=== PATIENT | female | born 1975 | race Caucasian/White ===

== ENCOUNTER → 2019-01-21 | Outpatient (CLI) | payer OTHER ==
--- NOTE | 2019-01-22 03:30 | REP ---
Clinical: Pain. Technique: AP, lateral, bilateral oblique views of the right ankle. Findings: Moderate generalized swelling. No acute fracture dislocation. Fixation screw through the posterior calcaneus noted. Mild age-related degenerative changes. Impression: Swelling and mild age-related degenerative changes. Electronically Signed by Allan Townsend MD 01/22/2019 03:21 A
--- NOTE | 2019-01-22 03:34 | REP ---
Clinical: Pain Technique: AP, lateral, bilateral oblique views right foot . Findings: Prior surgical procedure involving the first toe proximal phalanx and calcaneus. Mild degenerative changes at the first tarsometatarsal and metatarsophalangeal joint includes increase sclerosis and minimal joint space narrowing. Mild degenerative changes at the first interphalangeal joint also suggested. Remainder examination appears relatively normal for age. There is no evidence for acute fracture or dislocation. Surrounding soft tissues are unremarkable. No subcutaneous emphysema or radiodense foreign body. Impression: Evidence for prior surgery involving calcaneus and first toe. Minimal age-related degenerative changes primarily involving the first toe. No acute fracture or dislocation. Electronically Signed by Allan Townsend MD 01/22/2019 03:25 A
== END ==
LOC: M WUC 11:00
PROVIDERS: ATTEND Physician Assistant
DX: M25.571 Pain in right ankle and joints of right foot (principal); Z96.60 Presence of unspecified orthopedic joint implant

== ENCOUNTER → 2019-05-14 | Outpatient (REF) | payer OTHER ==
[2019-05-14 18:40] LABS: BASO # 0.1 10^3/uL (0.0-0.2); BASO % 0.5 % (0.0-1.0); EOS # 0.1 10^3/uL (0.0-0.5); EOS % 1.1 % (0.0-3.0); LYMPH # 3.6 10^3/uL (1.5-5.0); LYMPH % 35.4 % (24.0-44.0); MEAN CORPUSCULAR HEMOGLOBIN 33.9 pg (27.0-33.0); MEAN CORPUSCULAR HGB CONC 34.1 g/dl (32.0-36.5); MEAN CORPUSCULAR VOLUME 99.5 fl (80.0-96.0); MONO # 0.6 10^3/uL (0.0-0.8); NEUTROPHILS # 5.8 10^3/uL (1.5-8.5); NEUTROPHILS % 56.7 % (36.0-66.0); PLATELET COUNT, AUTOMATED 303 10^3/uL (150-450); RED BLOOD COUNT 4.42 10^6/uL (4.00-5.40); WHITE BLOOD COUNT 10.2 10^3/uL (4.0-10.0)
[2019-05-14 19:21] LABS: ALBUMIN 4.2 GM/DL (3.2-5.2); ALT/SGPT 35 U/L (12-78); BILIRUBIN,TOTAL 0.2 MG/DL (0.2-1.0); BLOOD UREA NITROGEN 13 MG/DL (7-18); C REACTIVE PROTEIN QUANTITATIV < 0.30 MG/DL (0.00-0.30); CALCIUM LEVEL 8.9 MG/DL (8.5-10.1); CARBON DIOXIDE LEVEL 22 MEQ/L (21-32); CHLORIDE LEVEL 109 MEQ/L (98-107); COMPLEMENT C3 114 MG/DL (90-180); COMPLEMENT C4 22 MG/DL (10-40); CREATININE FOR GFR 0.61 MG/DL (0.55-1.30); FERRITIN 60 NG/ML (8-252); GLOMERULAR FILTRATION RATE > 60.0 (>58); GLUCOSE, FASTING 72 MG/DL (70-100); IMMUNOGLOBULIN G 545 MG/DL (681-1648); IRON (FE) 102 UG/DL (50-170); PERCENT SATURATION 27.3 % (13.2-45.0); POTASSIUM SERUM 3.9 MEQ/L (3.5-5.1); RHEUMATOID FACTOR QUANT < 10.0 IU/ML (<15.0); SODIUM LEVEL 139 MEQ/L (136-145); TOTAL IRON BINDING CAPACITY 373 UG/DL (250-450); TOTAL PROTEIN 6.8 GM/DL (6.4-8.2)
[2019-05-14 19:30] LABS: ERYTHROCYTE SEDIMENTATION RATE 3 mm/hr (0-20)
[2019-05-15 11:00] LABS: ALBUMIN 4.56 GM/DL (3.29-5.55); ALPHA-1-GLOBULIN % 4.5 % (2.9-4.9); ALPHA-1-GLOBULINS 0.31 GM/DL (0.17-0.41); ALPHA-2-GLOBULINS % 10.3 % (7.1-11.8); BETA-1-GLOBULINS 0.42 GM/DL (0.28-0.60); BETA-1-GLOBULINS % 6.2 % (4.7-7.2); BETA-2-GLOBULINS 0.24 GM/DL (0.19-0.55); BETA-2-GLOBULINS % 3.5 % (3.2-6.5); GAMMA GLOBULIN % 8.5 % (11.1-18.8); GAMMA GLOBULINS 0.58 GM/DL (0.65-1.58)
[2019-05-19 14:06] LABS: ANA (HEP2) Negative (.); ANTI DS-DNA AB Negative (Negative); BETA-2 GLYCOPROTEIN I ABY IGA <9 (0-25); BETA-2 GLYCOPROTEIN I ABY IGG <9 (0-20); BETA-2 GLYCOPROTEIN I ABY IGM <9 (0-32); CARDIOLIPIN IGA ANTIBODY <9 APL U/mL (0-11); CARDIOLIPIN IGG ANTIBODY <9 GPL U/mL (0-14); CARDIOLIPIN IGM ANTIBODY <9 MPL U/mL (0-12); CYCLIC CITRULLINATED PEPTIDE 8 units (0-19); RNP ANTIBODY < 0.2 AI (0.0-0.9); SMITHS ANTIBODY < 0.2 AI (0.0-0.9); SSA SJOGRENS A <0.2 AI (0.0-0.9); SSB SJOGRENS B <0.2 AI (0.0-0.9)
[2019-05-20 10:31] LABS: DRVV SCREEN 40.7 SEC
[2019-05-27 09:56] LABS: JAK2 MUTATIONS FOR PATH SENDOU See Pathology Report
== END ==
LOC: M SFHCRHEU 15:16
PROVIDERS: ATTEND Internal Medicine
DX: D75.1 Secondary polycythemia (principal); D84.9 Immunodeficiency, unspecified; R23.1 Pallor; M25.50 Pain in unspecified joint
CPT/HCPCS: 36415; 80053; 82728; 82784; 83550; 84165; 85025; 85652; 85730; 86038; 86140; 86146; 86147; 86160; 86200; 86225; 86235; 86255; 86431; 88300; G0463

== ENCOUNTER 2019-08-16 15:35 | Emergency (ER) | payer OTHER ==
[~2019-08-16] VITALS: Ht 175.3 cm; Wt 110.2 kg
[2019-08-16] MEDS ORDERED: METR-265 (15:47)
[2019-08-16] MEDS ORDERED: LISI20TA19 (15:47)
[2019-08-16] MEDS ORDERED: TIZA4TAB4 (15:47)
[2019-08-16] MEDS ORDERED: VYVA40CA3 (15:47)
[2019-08-16] MEDS ORDERED: OMEP-218 (15:47)
[2019-08-16] MEDS ORDERED: TOPI50TA9 (15:48)
[2019-08-16] MEDS ORDERED: GABAPENTIN 300 MG CAP PO ONE (17:30)
[2019-08-16] MEDS ORDERED: LORazepam 2 MG/ML VIAL IV STA (17:51)
[2019-08-16 18:22] LABS: BASO % 0.4 % (0.0-1.0); EOS # 0.1 10^3/uL (0.0-0.5); EOS % 0.9 % (0.0-3.0); HEMATOCRIT 44.4 % (36.0-47.0); LYMPH # 3.7 10^3/uL (1.5-5.0); LYMPH % 33.4 % (24.0-44.0); MEAN CORPUSCULAR HEMOGLOBIN 34.1 pg (27.0-33.0); MEAN CORPUSCULAR VOLUME 94.7 fl (80.0-96.0); MONO # 0.6 10^3/uL (0.0-0.8); MONO % 5.2 % (0.0-5.0); NEUTROPHILS # 6.6 10^3/uL (1.5-8.5); NEUTROPHILS % 59.8 % (36.0-66.0); PLATELET COUNT, AUTOMATED 282 10^3/uL (150-450); RED BLOOD COUNT 4.69 10^6/uL (4.00-5.40)
[2019-08-16 18:42] LABS: C REACTIVE PROTEIN QUANTITATIV < 0.30 MG/DL (0.00-0.30)
--- NOTE | 2019-08-16 18:56 | REPVR ---
PROCEDURE INFORMATION: Exam: MR Lumbar Spine Without Contrast. Exam date and time: 08/16/2019 5:25 PM Age: 43 years old Clinical indication: Low back pain; Patient HX: Chronic pain, worsening; Additional info: Urinary retention, R foot drop, HX l5-s1 foraminal narrowing TECHNIQUE: Imaging protocol: Multiplanar magnetic resonance images of the lumbar spine without intravenous contrast. COMPARISON: No relevant prior studies available. FINDINGS: Transitional anatomy at the lumbosacral junction. For the purposes of this report, S1 is considered partially lumbarized. Grade 1 anterolisthesis of L4 on L5 mild retrolisthesis of L5 on S1. Vertebral body heights are preserved. Disc desiccation and mild disc space narrowing at L4-L5 and L5-S1. Mild degenerative endplate signal. No evidence of discitis/osteomyelitis. Conus medullaris terminates at L1-L2. No epidural fluid collection. Reactive edema involving the bilateral L4-L5 facet joints. L1-L2: Mild bilateral facet joint arthropathy without central or foraminal stenosis. L2-L3: Mild bilateral facet joint arthropathy without central or foraminal stenosis. L3-L4: Minimal disc bulge. There is mild bilateral facet joint arthropathy with small bilateral facet joint effusions. No significant central canal stenosis. Mild left foraminal stenosis. L4-L5: Rzeh-it-nkydufjb disc bulge with moderate bilateral facet joint arthropathy and posterior laxity of ligamentum flavum. Mild to moderate central canal stenosis and usge-kx-gukgcuzg bilateral foraminal stenosis. L5-S1: Cuvc-uo-zwqsytpq disc bulge with bilateral facet joint arthropathy. No significant central canal stenosis. There is moderate to severe bilateral foraminal stenosis. IMPRESSION: 1. Reactive edema involving the bilateral L4-L5 facet joints. Finding can be pain generating. 2. Degenerative findings as above including mild to moderate central canal stenosis at L4-L5. Electronically signed by: Stanislav Perez On 08/16/2019 18:55:43 PM
[2019-08-16 19:50] LABS: BLOOD UREA NITROGEN 9 MG/DL (7-18); CALCIUM LEVEL 8.9 MG/DL (8.5-10.1); CARBON DIOXIDE LEVEL 22 MEQ/L (21-32); CHLORIDE LEVEL 107 MEQ/L (98-107); CREATININE FOR GFR 0.63 MG/DL (0.55-1.30); GLOMERULAR FILTRATION RATE > 60.0 (>58); GLUCOSE, FASTING 88 MG/DL (70-100); POTASSIUM SERUM 3.4 MEQ/L (3.5-5.1); SODIUM LEVEL 136 MEQ/L (136-145)
[2019-08-16] MEDS ORDERED: methylPREDNISolone INJ 125 MG/2 ML VIAL (J2930) IV ONE (20:00)
[2019-08-16] MEDS ORDERED: KETOROLAC 30 MG/ML 1ML VIAL IV ONE (20:00)
[2019-08-16] MEDS ORDERED: VALI5TAB PO (20:31)
[2019-08-16] MEDS ORDERED: PRED20TA PO (20:31)
[2019-08-16] MEDS ORDERED: NEUR300C PO (20:31)
[2019-08-16 20:39] VITALS: BP 135/77
[2019-08-16] MEDS ORDERED: diazePAM 5 MG TAB PO ONE (20:45)
[2019-08-16 21:14] LABS: ERYTHROCYTE SEDIMENTATION RATE 3 mm/hr (0-20)
--- NOTE | 2019-08-18 12:07 | ED PDOC ---
Post-Departure Follow-Up mri ls spine faxed to lissy [facility]elson for fu Selena Mckinnon MD Aug 18, 2019 12:07
== END 2019-08-16 20:58 | disposition home or self-care (01) ==
LOC: M ED 15:35
DX: M54.16 Radiculopathy, lumbar region (principal); R20.2 Paresthesia of skin; I10 Essential (primary) hypertension; K21.9 Gastro-esophageal reflux disease without esophagitis; Z79.899 Other long term (current) drug therapy
CPT/HCPCS: 72148; 80048; 81001; 84702; 85025; 85652; 86140; 96374; 96375; 99284; J1885; J2060; J2930

== ENCOUNTER → 2019-08-23 | Outpatient (CLI) | payer OTHER ==
[~2019-08-23] MED LIST: LISI20TA19; METR-265; NEUR300C PO; OMEP-218; PRED20TA PO; TIZA4TAB4; TOPI50TA9; VALI5TAB PO; VYVA40CA3
--- NOTE | 2019-08-23 15:10 | REP ---
Clinical: Cervicalgia Technique: AP, lateral, flexion/extension, bilateral oblique, and open-mouth views. Findings: Alignment and lordosis is maintained. There is no evidence for acute fracture / compression injury or subluxation. No significant degenerative changes are appreciated. Oblique views demonstrate patent neural foramen. Open mouth view demonstrates normal C1-C2 articulation and odontoid process. Impression: Normal essentially age-appropriate cervical spine series. Electronically Signed by Allan Townsend MD 08/23/2019 03:02 P
== END ==
LOC: M WUC 14:44
PROVIDERS: ATTEND Physician Assistant
DX: M54.2 Cervicalgia (principal)

== ENCOUNTER 2019-09-08 13:47 | Emergency (ER) | payer OTHER ==
[~2019-09-08] VITALS: Ht 175.3 cm; Wt 107.3 kg
[2019-09-08] MEDS ORDERED: DULO1CAP5 (14:18)
[2019-09-08] MEDS ORDERED: HYDR-3713 (14:18)
[2019-09-08 15:48] LABS: BASO # 0.1 10^3/uL (0.0-0.2); BASO % 0.5 % (0.0-1.0); EOS # 0.1 10^3/uL (0.0-0.5); EOS % 0.8 % (0.0-3.0); HEMATOCRIT 43.2 % (36.0-47.0); HEMOGLOBIN 15.5 g/dl (12.0-15.5); LYMPH # 2.9 10^3/uL (1.5-5.0); MEAN CORPUSCULAR HEMOGLOBIN 34.5 pg (27.0-33.0); MEAN CORPUSCULAR HGB CONC 35.9 g/dl (32.0-36.5); MEAN CORPUSCULAR VOLUME 96.2 fl (80.0-96.0); MONO # 0.6 10^3/uL (0.0-0.8); MONO % 6.1 % (0.0-5.0); NEUTROPHILS # 5.5 10^3/uL (1.5-8.5); NEUTROPHILS % 60.4 % (36.0-66.0); PLATELET COUNT, AUTOMATED 311 10^3/uL (150-450); RED BLOOD COUNT 4.49 10^6/uL (4.00-5.40); WHITE BLOOD COUNT 9.2 10^3/uL (4.0-10.0)
[2019-09-08 16:06] LABS: ERYTHROCYTE SEDIMENTATION RATE 6 mm/hr (0-20)
[2019-09-08 16:08] LABS: BLOOD UREA NITROGEN 15 MG/DL (7-18); C REACTIVE PROTEIN QUANTITATIV < 0.30 MG/DL (0.00-0.30); CALCIUM LEVEL 8.8 MG/DL (8.5-10.1); CARBON DIOXIDE LEVEL 22 MEQ/L (21-32); CHLORIDE LEVEL 109 MEQ/L (98-107); CPK CREATINE PHOSPHOKINASE 46 U/L (26-192); CREATININE FOR GFR 0.68 MG/DL (0.55-1.30); GLOMERULAR FILTRATION RATE > 60.0 (>58); GLUCOSE, FASTING 81 MG/DL (70-100); MAGNESIUM LEVEL 2.4 MG/DL (1.8-2.4); POTASSIUM SERUM 3.5 MEQ/L (3.5-5.1); SODIUM LEVEL 136 MEQ/L (136-145)
[2019-09-08 17:14] VITALS: BP 124/69
--- NOTE | 2019-09-09 01:35 | REP ---
TWO-VIEW CHEST: REASON FOR EXAM: Dyspnea. There are no priors for comparison. FINDINGS: The superior mediastinal structures are midline. The cardiac silhouette is unremarkable in size, shape, and position. The diaphragmatic surfaces of the lungs are regular, and the costophrenic angles are clear. The pulmonary cruz are clear. The imaged osseous structures are intact. IMPRESSION: There is no acute cardiopulmonary disease. Electronically Signed by Elvis Croft DO 09/09/2019 10:23 A
== END 2019-09-08 17:19 | disposition home or self-care (01) ==
LOC: M ED 13:47
DX: G62.9 Polyneuropathy, unspecified (principal); R06.09 Other forms of dyspnea; R53.1 Weakness; F17.210 Nicotine dependence, cigarettes, uncomplicated; I10 Essential (primary) hypertension; J45.909 Unspecified asthma, uncomplicated

== ENCOUNTER → 2019-09-15 | Outpatient (CLI) | payer OTHER ==
[~2019-09-15] MED LIST changes: +DULO1CAP5; +HYDR-3713; +PROHANCE 279.3MG/ML 15ML VIAL As Ordered ONE; +PROHANCE 279.3MG/ML 5ML VIAL As Ordered ONE
--- NOTE | 2019-09-16 02:45 | REPVR ---
PROCEDURE INFORMATION: Exam: MR Head Without and With Contrast Exam date and time: 09/15/2019 4:48 PM Age: 43 years old Clinical indication: Dizziness and walking, difficulty; Additional info: Radiculopathy, abnormality of gait/mobility TECHNIQUE: Imaging protocol: MR of the head without and with intravenous contrast. 3D rendering: MIP and/or 3D reconstructed images were created by the technologist. Contrast material: PROHANCE; Contrast volume: 20 ml; Contrast route: INTRAVENOUS (IV); COMPARISON: No relevant prior studies available. FINDINGS: Limitations: Motion artifact limits this study. Brain: There are several small foci of FLAIR hyperintensity within the cerebral white matter. There is no mass effect or restricted diffusion associated with these foci. This white matter disease is nonspecific as to etiology. Possible etiologies include chronic small vessel ischemic disease, foci of demyelination, post-traumatic change, and migraine headaches, as well as additional infectious, inflammatory and autoimmune etiologies. No restricted diffusion within the brain to suggest an acute infarct. No abnormally enhancing intracranial mass is identified. No cerebral edema. Mild bilateral dural thickening and enhancement seen anteriorly. Differential considerations include infection, metastatic disease, intracranial hypotension, and idiopathic pachymeningitis. Low-lying cerebellar tonsils. No magnetic susceptibility intracerebral blood products/hemosiderin visualized. Ventricles: Small choroid plexus cysts are identified. No ventriculomegaly. Bones/joints: Nonspecific heterogeneous signal intensity of the skull. Sinuses: Magnetic susceptibility artifact limits evaluation of the right maxillary sinus. Mastoid air cells: Mild effusions within right mastoid air cells. Minimal mucosal thickening of left mastoid air cells. Orbits: Artifact limits evaluation of the optic globes. Soft tissues: Unremarkable, as visualized. IMPRESSION: 1. No restricted diffusion within the brain to suggest an acute infarct. 2. There are several small foci of FLAIR hyperintensity within the cerebral white matter. This white matter disease is nonspecific as to etiology, as detailed above. 3. Mild bilateral dural thickening and enhancement seen anteriorly. Differential considerations include infection, metastatic disease, intracranial hypotension, and idiopathic pachymeningitis. Clinical correlation is recommended. 4. Additional findings described above. Electronically signed by: Darrin Matson On 09/16/2019 02:44:58 AM
--- NOTE | 2019-09-16 03:17 | REPVR ---
PROCEDURE INFORMATION: Exam: MR Cervical Spine Without and With Contrast Exam date and time: 09/15/2019 4:49 PM Age: 43 years old Clinical indication: Radiculopathy; Cervicothoracic region; Additional info: Radiculopathy, abnormality of gait/mobility TECHNIQUE: Imaging protocol: Multiplanar magnetic resonance images of the cervical spine without and with intravenous contrast. Contrast material: PROHANCE; Contrast volume: 20 ml; Contrast route: INTRAVENOUS (IV); COMPARISON: CR SPINE CERVICAL COMPL 08/23/2019 2:58 PM FINDINGS: Vertebrae: The cervical vertebral bodies are normal in height, without abnormal subluxation. The cervical lordosis is straightened. Spinal cord: No visualized cervical spinal cord edema. Artifact limits evaluation of the cervical spinal canal on the T2 weighted sequence. There is a mild decrease in the AP diameter of the cervical spinal cord at C6-C7, which is likely developmental or due to mild atrophy. There is no evidence of compression from disc pathology. No pathological enhancement. Spinal epidural space: No epidural fluid collection identified. Multilevel findings: Degenerative disc disease is noted at multiple cervical levels, with a decrease in the T2 signal intensity of the discs as well as disc bulge/osteophyte complexes. C2-C3: Minimal disc bulging, without significant narrowing of the thecal sac or neural foramina. C3-C4: Minimal disc bulging causing flattening of the ventral border of the thecal sac, without significant narrowing. No significant neural foraminal narrowing bilaterally. C4-C5: Minimal disc bulging, without significant narrowing of the thecal sac. Mild right and moderate left neural foraminal narrowing, with uncovertebral hypertrophy. C5-C6: Minimal disc bulging, without significant narrowing of the thecal sac. Mild bilateral neural foraminal narrowing, with uncovertebral hypertrophy. C6-C7: Minimal disc bulging, with mild narrowing of the thecal sac. Mild left neural foraminal narrowing. No significant narrowing of the right neural foramen. C7-T1: No significant narrowing of the thecal sac. Mild left neural foraminal narrowing. No significant narrowing of the right neural foramen. Vertebral arteries: A dominant left vertebral artery is identified. Soft tissues: Mild prevertebral swelling is identified, with enhancement. This is likely infectious, inflammatory, or post-traumatic. There is a hypointense focus of gas posterior to the cricoid cartilage on the left side. This measures 1.2 x 0.7 cm. A diverticulum is considered. IMPRESSION: 1. Mild prevertebral swelling is identified, with enhancement. This is likely infectious, inflammatory, or post-traumatic. Clinical correlation recommended. 2. There is a mild decrease in the AP diameter of the cervical spinal cord at C6-C7, which is likely developmental or due to mild atrophy. There is no evidence of compression from disc pathology. 3. Degenerative changes are noted at multiple cervical levels, as described above. 4. Mild narrowing of the thecal sac at C6-C7. 5. Neural foraminal narrowing visualized from C4-C5 through C7-T1. 6. The cervical lordosis is straightened. This can be associated with muscle spasms. 7. There is a hypointense focus of gas posterior to the cricoid cartilage on the left side. This measures 1.2 x 0.7 cm. A diverticulum is considered. An infectious etiology cannot be excluded. Electronically signed by: Darrin Matson On 09/16/2019 03:17:22 AM
== END ==
LOC: M RAD 14:51
PROVIDERS: ATTEND Physician Assistant
DX: M54.16 Radiculopathy, lumbar region (principal); M50.21 Other cervical disc displacement, high cervical region; M50.221 Other cervical disc displacement at C4-C5 level; M50.223 Other cervical disc displacement at C6-C7 level; M50.222 Other cervical disc displacement at C5-C6 level; M50.23 Other cervical disc displacement, cervicothoracic region; R42 Dizziness and giddiness; R26.2 Difficulty in walking, not elsewhere classified; R90.82 White matter disease, unspecified
CPT/HCPCS: 70553; 72156; A9576

== ENCOUNTER → 2019-10-02 | Outpatient (CLI) | payer OTHER ==
[~2019-10-02] MED LIST changes: +CETI10CA2 PO; +DILT120C78 PO; +LEVO500T3; +LEXA1TAB PO; -LISI20TA19; +LISI20TA35; +MOTR200T44 PO; +MUCI1TAB16 PO; +NORC1TAB5 PO; +PSEU120T3 PO; +TOPA50TA8 PO; -VYVA40CA3; +VYVA40CA3 PO
--- NOTE | 2019-10-02 15:22 | REPVR ---
PROCEDURE INFORMATION: Exam: MR Thoracic Spine Without and With Contrast Exam date and time: 10/02/2019 9:59 AM Age: 43 years old Clinical indication: Weakness; Additional info: Weakness, radiculopathy, abnormality of giat TECHNIQUE: Imaging protocol: Multiplanar magnetic resonance images of the thoracic spine without and with intravenous contrast. Contrast material: PROHANCE; Contrast volume: 20 ml; Contrast route: INTRAVENOUS (IV); COMPARISON: No relevant prior studies available. FINDINGS: Vertebrae: Anatomic alignment. No acute fracture seen. Epidural space: No evidence of epidural fluid collection. Spinal cord: Normal signal. No cord compression. No abnormal enhancement. Discs/Spinal canal/Neural foramina: Disc desiccation from T3-4 through T6-7. No significant disc height loss. Trace multilevel thoracic prevertebral spondylosis. At T5-6, 1-2 mm left paracentral disc protrusion does not contribute to central spinal canal stenosis. Soft tissues: Unremarkable. Marrow: Focal T5 and T7 vertebral body hemangiomas. IMPRESSION: Mild degenerative changes without stenoses. Electronically signed by: Haylie Calderon On 10/02/2019 15:22:35 PM
--- NOTE | 2019-10-02 15:37 | REPVR ---
PROCEDURE INFORMATION: Exam: MR Lumbar Spine Without and With Contrast. Exam date and time: 10/02/2019 9:59 AM Age: 43 years old Clinical indication: Weakness; Additional info: Weakness, radiculopathy, abnormality of gait TECHNIQUE: Imaging protocol: Multiplanar magnetic resonance images of the lumbar spine without and with intravenous contrast. Contrast material: PROHANCE; Contrast volume: 20 ml; Contrast route: INTRAVENOUS (IV); COMPARISON: 1. MRI-Spine, L.S. without con 08/16/2019 6:20 PM 2. MRI-T SPINE W/O FOLL WITH CON 10/02/2019 8:21:39 AM FINDINGS: Vertebrae: On this day, an MRI thoracic spine was done concurrently. This designates a transitional L5 vertebral body which is partially sacralized. In order to remain consistent with the prior MRI lumbar spine report, the transitional vertebral body segment is considered to be a lumbarized S1. L5-S1 is considered to be axial image 4 of series 701. Mild exaggeration of the lumbar lordosis. Slight grade 1 degenerative anterolisthesis of L4 on L5 and degenerative retrolisthesis of L5 on S1, as before. No acute fracture seen. Edema in the L4 and L5 pedicles as well as articular facets with facet joint effusions as well as periarticular soft tissue edema, most likely inflammatory related to advanced facet arthropathy (there is periarticular soft tissue enhancement). Spinal epidural space: No evidence of epidural fluid collection. Spinal cord: The conus medullaris ends normally. No abnormal enhancement of the cauda equina nerve roots. There is disc desiccation at L4-L5 and L5-S1. Mild disc height loss and spondylosis, in particular prevertebral spondylosis with fatty degenerative marrow signal change of the endplates at L5-S1. L1-L2: No significant interval change. Mild facet arthropathy. No stenoses. L2-L3: No significant interval change. Mild facet arthropathy. No stenoses. L3-L4: No significant interval change. Slight disc bulge as well as mild facet arthropathy. The central spinal canal remains patent. Mild left neural foraminal stenosis. No significant right neural foraminal narrowing. L4-L5: No significant interval change. Anterolisthesis with pseudobulging of the intervertebral disc. High-intensity zone in left foraminal disc margin without a focal disc protrusion or extrusion, as before. There is marked facet arthropathy and ligamentum flavum buckling. Central spinal canal stenosis is zbex-io-mlbtjkap. Ghot-cm-phvcjyan bilateral neural foraminal stenoses. L5-S1: No significant interval change. Retrolisthesis, as well as mild to moderate disc osteophyte complex and facet arthropathy. The central spinal canal remains patent. Moderate to severe bilateral neural foraminal stenoses, as before. Soft tissues: See "Vertebrae" finding. IMPRESSION: 1. Transitional anatomy of the lumbosacral junction is again demonstrated. In order to remain consistent with the prior report, the S1 vertebral segment is considered to be lumbarized. 2. No significant interval change. 3. Brnw-jq-lipyqcnq central spinal canal and neural foraminal stenoses at L4-L5, as before. 4. High-grade neural foraminal stenoses at L5-S1, as before. Electronically signed by: Haylie Calderon On 10/02/2019 15:36:55 PM
== END ==
LOC: M RAD 07:59
PROVIDERS: ATTEND Physician Assistant
DX: R26.89 Other abnormalities of gait and mobility (principal); M54.16 Radiculopathy, lumbar region; R53.1 Weakness
CPT/HCPCS: 72157; 72158; A9576

== ENCOUNTER 2019-11-25 20:16 | Emergency (ER) | payer OTHER ==
[~2019-11-25] VITALS: Ht 175.3 cm; Wt 111.5 kg
[~2019-11-25 20:16] MED LIST changes: -CETI10CA2 PO; -DILT120C78 PO; -LEVO500T3; -LEXA1TAB PO; -MOTR200T44 PO; -MUCI1TAB16 PO; -NORC1TAB5 PO; -PROHANCE 279.3MG/ML 15ML VIAL As Ordered ONE; -PROHANCE 279.3MG/ML 5ML VIAL As Ordered ONE; -PSEU120T3 PO; -TOPA50TA8 PO
[2019-11-25 22:29] LABS: BASO % 0.4 % (0.0-1.0); EOS # 0.1 10^3/uL (0.0-0.5); EOS % 1.4 % (0.0-3.0); HEMATOCRIT 41.6 % (36.0-47.0); HEMOGLOBIN 14.3 g/dl (12.0-15.5); LYMPH % 43.5 % (24.0-44.0); MEAN CORPUSCULAR HEMOGLOBIN 34.4 pg (27.0-33.0); MEAN CORPUSCULAR HGB CONC 34.4 g/dl (32.0-36.5); MONO # 0.5 10^3/uL (0.0-0.8); MONO % 5.5 % (0.0-5.0); NEUTROPHILS # 4.5 10^3/uL (1.5-8.5); NEUTROPHILS % 49.1 % (36.0-66.0); PLATELET COUNT, AUTOMATED 320 10^3/uL (150-450); RED BLOOD COUNT 4.16 10^6/uL (4.00-5.40); WHITE BLOOD COUNT 9.1 10^3/uL (4.0-10.0)
[2019-11-25 22:39] LABS: INR 1.02; PROTHROMBIN TIME 13.6 SECONDS (11.8-14.0)
[2019-11-25 22:40] LABS: PARTIAL THROMBOPLASTIN TIME 33.6 SECONDS (25.0-38.4)
[2019-11-25 22:55] LABS: ALBUMIN 3.6 GM/DL (3.2-5.2); ALT/SGPT 36 U/L (12-78); BILIRUBIN,DIRECT < 0.1 MG/DL (0.0-0.2); BILIRUBIN,TOTAL 0.2 MG/DL (0.2-1.0); C REACTIVE PROTEIN QUANTITATIV < 0.30 MG/DL (0.00-0.30); ERYTHROCYTE SEDIMENTATION RATE 13 mm/hr (0-20); TOTAL PROTEIN 6.3 GM/DL (6.4-8.2)
--- NOTE | 2019-11-25 23:45 | REPVR ---
PROCEDURE INFORMATION: Exam: US Duplex Left Upper Extremity Veins, Limited Exam date and time: 11/25/2019 11:34 PM Age: 43 years old Clinical indication: Swelling (edema) of limb; Upper extremity, left; Additional info: R/O dvt, sweling/lumps TECHNIQUE: Imaging protocol: Real-time Duplex ultrasound of the Left Upper Extremity with 2-D bee scale, color Doppler flow and spectral waveform analysis with image documentation. Limited exam focused on the left upper extremity veins. COMPARISON: No relevant prior studies available. FINDINGS: Left deep veins: Unremarkable. Axillary and brachial veins are patent throughout without thrombus. Normal Doppler waveforms. Normal compressibility and/or augmentation response. Visualized internal jugular and subclavian veins are patent. Brachial veins are small in caliber. Left superficial veins: Unremarkable. Visualized cephalic and basilic veins are patent without thrombus. Soft tissues: Subtle hyperechoic lesion in the medial aspect of the left upper arm in the subcutaneous tissue measuring 1.4 x 2.0 x 0.6 cm. IMPRESSION: 1. No evidence of deep vein thrombosis. 2. Subtle hyperechoic lesion in the medial aspect of the left upper arm in the subcutaneous tissue. Possible cellulitis or hematoma. Electronically signed by: Louis Perez On 11/25/2019 23:45:12 PM
[2019-11-26 00:18] VITALS: BP 118/73
[2019-12-17] MEDS ORDERED: PSEU120T3 PO (13:29)
[2019-12-17] MEDS ORDERED: TOPA50TA8 PO (13:29)
[2019-12-17] MEDS ORDERED: LEXA1TAB PO (13:29)
[2019-12-17] MEDS ORDERED: NORC1TAB5 PO (13:29)
[2019-12-17] MEDS ORDERED: MOTR200T44 PO (13:29)
[2019-12-17] MEDS ORDERED: CETI10CA2 PO (13:29)
[2019-12-17] MEDS ORDERED: MUCI1TAB16 PO (13:29)
[2019-12-30] MEDS ORDERED: LEVO500T3 (08:47)
[2020-01-20] MEDS ORDERED: DILT120C78 PO (13:47)
== END 2019-11-26 00:19 | disposition home or self-care (01) ==
LOC: M ED 20:16
DX: E87.6 Hypokalemia (principal); R22.31 Localized swelling, mass and lump, right upper limb; I10 Essential (primary) hypertension; K21.9 Gastro-esophageal reflux disease without esophagitis; M79.2 Neuralgia and neuritis, unspecified; Z79.899 Other long term (current) drug therapy; F17.210 Nicotine dependence, cigarettes, uncomplicated

== ENCOUNTER → 2020-04-21 | Outpatient (CLI) | payer OTHER ==
[~2020-04-21] MED LIST changes: +CETI10CA2 PO; +DILT120C78 PO; +LEVO500T3; +LEXA1TAB PO; +MOTR200T44 PO; +MUCI1TAB16 PO; +NORC1TAB5 PO; +PSEU120T3 PO; +TOPA50TA8 PO
--- NOTE | 2020-04-21 14:29 | REP ---
INDICATION: PAIN IN LEGS,EDEMA,UNSPECIFIED ABNORMALITIES OF B COMPARISON: None. TECHNIQUE: Real time malagon scale and color Doppler evaluation of the bilateral lower extremity arterial vasculature using linear high frequency transducer. FINDINGS: Malagon scale and color images demonstrate mild atheromatous plaquing without stenosis or occlusion. Doppler interrogation demonstrates primarily bilateral triphasic arterial wave patterns with monophasic wave patterns noted through the bilateral posterior tibial arteries of uncertain significance and without obvious proximal luminal abnormality. Right KATHARINE: 1.09 Left KATHARINE: 1.09 Peak systolic velocities (cm/sec) Common femoral artery: Right 170; Left 182 Profunda femoris: Right 164; Left 135 SFA (proximal): Right 176; Left 154 SFA (mid): Right 107; Left 110 SFA (distal): Right 146; Left 102 Popliteal artery: Right 100; Left 82 RENETTA (prox.): Right 82; Left 76 Tibioperoneal trunk: Right 63; Left 90 MANAGER RETAIL (prox.): Right 96; Left 90 MANAGER RETAIL (distal): Right 102; Left 85 RENETTA (distal): Right 35; Left 50 IMPRESSION: Mild bilateral atheromatous plaquing. No areas of stenosis/significant narrowing or occlusion appreciated. <Electronically signed by Allan Townsend > 04/21/20 [id number]
--- NOTE | 2020-04-21 14:35 | REP ---
INDICATION: BLE WITH REFLUX, VENOUS INSUFF COMPARISON: None. TECHNIQUE: Malagon scale and color Doppler evaluation using linear high frequency transducer with reflux evaluation. FINDINGS: Ultrasound examination of the right and left lower extremity deep venous structures from the common femoral vein to the popliteal vein demonstrates normal compressibility flow and wave patterns in response to respiration and augmentation. There is no evidence for deep venous thrombosis. Further directed evaluation in the areas of focal tenderness along the bilateral calves demonstrate what appears to be areas of muscular protrusion into the subcutaneous fat 3 small fascial defects. Findings may be related to old injuries and/or surgery. Correlation is required. Right lower extremity demonstrates minimal reflux through the common femoral vein on standing and no reflux through the superficial venous system. Left lower extremity demonstrates minimal reflux through the proximal saphenous vein on standing only. IMPRESSION: No evidence for deep venous thrombosis. No relatively significant reflux disease noted. Focal areas of tenderness demonstrate irregularities of the musculature as described above of uncertain clinical significance. Correlation with physical examination and history of prior trauma or surgery is recommended. No associated fluid collection or mass lesion identified. <Electronically signed by Allan Townsend > 04/21/20 [id number]
== END ==
LOC: M RAD 10:54
PROVIDERS: ATTEND Physician Assistant
DX: M79.606 Pain in leg, unspecified (principal); R60.9 Edema, unspecified

== ENCOUNTER → 2020-06-17 | Outpatient (CLI) | payer OTHER ==
--- NOTE | 2020-06-17 15:31 | REP ---
INDICATION: TARSAL TUNNEL SYNDROME RIGHT FOOT. COMPARISON: MRI right ankle 01/12/2020. TECHNIQUE: Multiple sequences obtained in the axial, coronal and sagittal planes. FINDINGS: Metallic hardware and related magnetic susceptibility artifact is seen in the posterior calcaneus once again. There is metallic fixation in the 1st proximal phalanx with similar artifact. There is magnetic susceptibility artifact in the medial soft tissues of the hindfoot adjacent to the talus, calcaneus and navicular bone. Visualized tendons of the ankle appear intact without significant tenosynovitis. The flexor and extensor tendons of the foot appear intact without significant tenosynovitis. Stable heterogeneous increased signal on T2 weighted images is seen within the talus, unchanged. There is mild ill-defined low signal on T1 and high signal on T2 in the distal 1st metatarsal likely related to prior surgery. In the region of the sinus tarsi there is vague ill-defined high signal on T2 weighted images with small cystic areas which have decreased in size compared to the prior study. No other abnormal bone marrow signal is seen. No joint effusion is seen in any portion of the right foot. No ganglion cyst is seen. IMPRESSION: Postsurgical changes as discussed in detail above. Stable findings in the talus as discussed above. Decreased cystic changes in the region of the sinus tarsi. <Electronically signed by Benji Malagon > 06/17/20 [id number]
== END ==
LOC: M PLARAD 13:51
PROVIDERS: ATTEND Physical Medicine & Rehabilitation
DX: G57.51 Tarsal tunnel syndrome, right lower limb (principal)

== ENCOUNTER → 2020-08-05 | Outpatient (CLI) | payer OTHER ==
--- NOTE | 2020-08-06 10:02 | REP ---
INDICATION: LUMBAR SPONDYLOSIS, R/O PLEXIS. COMPARISON: Comparison is made with prior lumbar spine MRI studies the most recent which is from 11/05/2020. TECHNIQUE: Axial, oblique coronal, and sagittal imaging planes utilized. T1 and T2 weighted sequences are included with without fat saturation. Images are acquired parallel and perpendicular to the sacrum.. FINDINGS: Transitional lumbosacral junction anatomy has been described previously. There is a disc at S1-S2. There is mild central canal stenosis and L4-5 and L5-S1 with bilateral foraminal narrowing at both of these levels. Cortical and medullary bone signal intensity are normal in the sacrum. The coccyx is unremarkable in position and appearance. Presacral soft tissues show no abnormality. Piriform is muscles are normal and symmetric. No mass or other impingement the lesion is seen in the distribution of the sciatic nerves on either side. No pelvic mass or adenopathy is observed. There is a small cyst visible in the right adnexa consistent with an ovarian cyst. There is also a small quantity of physiologic fluid in the cul-de-sac. The retro sacral soft tissues are unremarkable. No uterine abnormality is seen. IMPRESSION: Degenerative disc disease with central canal stenosis and foraminal narrowing bilaterally at L4-5 and L5-S1. Transitional eyes lumbosacral junction. No sacral, presacral, or pelvic lesion seen. No abnormality noted along the course of the sciatic nerves. <Electronically signed by Sonu Stephens > 08/06/20 [id number]
== END ==
LOC: M RAD 18:03
PROVIDERS: ATTEND Physical Medicine & Rehabilitation
DX: M47.896 Other spondylosis, lumbar region (principal); M51.26 Other intervertebral disc displacement, lumbar region

== ENCOUNTER → 2020-08-26 | Outpatient (CLI) | payer OTHER ==
--- NOTE | 2020-09-01 07:58 | REP ---
INDICATION: BENIGN LIPOMATOUS NEOPLASM ELBOW. COMPARISON: Ultrasound examination dated 12/11/2019 TECHNIQUE: Axial noncontrast images of the left elbow from the mid humeral shaft through the mid forearm with coronal and sagittal reformations. FINDINGS: Visualized osseous structures are intact and age-appropriate. Elbow joint space appears normal. No obvious effusion or significant osteoarthritic degenerative changes are appreciated. The surrounding musculature as well as vasculature appear normal. The surrounding superficial subcutaneous tissues are grossly unremarkable. No obvious mass lesion is identified and evaluating the prior ultrasound this presumed lipoma has vague borders thereby less likely discretely identified by CT. However, at the region of interest there is no suspicious abnormality of concern. IMPRESSION: Relatively normal noncontrast CT of the right elbow. No obvious abnormality by noncontrast CT evaluation. As detailed above. <Electronically signed by Allan Townsend > 09/01/20 [id number]
--- NOTE | 2020-09-01 08:00 | REP ---
INDICATION: BENIGN LIPOMATOUS NEOPLASM ELBOW. COMPARISON: Ultrasound dated 12/11/2019 TECHNIQUE: Axial noncontrast images through the right elbow from the mid humeral diaphysis through the mid forearm with coronal and sagittal reformations. FINDINGS: Visualized osseous structures are intact and age-appropriate. Elbow joint space appears normal. No obvious effusion or significant osteoarthritic degenerative changes are appreciated. The surrounding musculature as well as vasculature appear normal. The surrounding superficial subcutaneous tissues are grossly unremarkable. No obvious mass lesion is identified, and evaluating the prior ultrasound this presumed lipoma has vague borders thereby less likely discretely identified by CT. However, at the region of interest there is no suspicious abnormality of concern.. IMPRESSION: Relatively normal noncontrast CT of the right elbow. No obvious abnormality by noncontrast CT evaluation. As detailed above. <Electronically signed by Allan Townsend > 09/01/20 [id number]
== END ==
LOC: M RAD 16:12
PROVIDERS: ATTEND Physician Assistant
DX: D17.9 Benign lipomatous neoplasm, unspecified (principal)
CPT/HCPCS: 73200; G0463

== ENCOUNTER → 2020-11-16 | Outpatient (REF) | payer OTHER | LOC: M LAB REF 13:48 | PROVIDERS: ATTEND Physician Assistant | DX: L57.0 Actinic keratosis (principal) ==

== ENCOUNTER → 2021-09-01 | Outpatient (REF) | payer OTHER ==
[~2021-09-01] MED LIST changes: -LEVO500T3; +LEVO500T4; +OMEP-173; -OMEP-218; +TIZA10TA; -TIZA4TAB4
[2021-09-01 16:45] LABS: BASO # 0.1 10^3/uL (0.0-0.2); BASO % 0.4 % (0.0-1.0); EOS # 0.1 10^3/uL (0.0-0.5); EOS % 0.6 % (0.0-3.0); HEMATOCRIT 44.2 % (36.0-47.0); HEMOGLOBIN 14.7 g/dl (12.0-15.5); LYMPH # 2.9 10^3/uL (1.5-5.0); LYMPH % 14.3 % (24.0-44.0); MEAN CORPUSCULAR HEMOGLOBIN 33.4 pg (27.0-33.0); MEAN CORPUSCULAR HGB CONC 33.3 g/dl (32.0-36.5); MEAN CORPUSCULAR VOLUME 100.5 fl (80.0-96.0); MONO # 0.9 10^3/uL (0.0-0.8); MONO % 4.5 % (2.0-8.0); NEUTROPHILS # 15.9 10^3/uL (1.5-8.5); NEUTROPHILS % 79.5 % (36.0-66.0); PLATELET COUNT, AUTOMATED 288 10^3/uL (150-450); WHITE BLOOD COUNT 19.9 10^3/uL (4.0-10.0)
[2021-09-01 17:09] LABS: ALBUMIN 3.8 GM/DL (3.2-5.2); ALT/SGPT 24 U/L (12-78); BILIRUBIN,TOTAL 0.2 MG/DL (0.2-1.0); BLOOD UREA NITROGEN 17 MG/DL (7-18); C REACTIVE PROTEIN QUANTITATIV 0.67 MG/DL (0.00-0.30); CALCIUM LEVEL 9.1 MG/DL (8.5-10.1); CARBON DIOXIDE LEVEL 23 MEQ/L (21-32); CHLORIDE LEVEL 107 MEQ/L (98-107); CREATININE FOR GFR 0.62 MG/DL (0.55-1.30); GLOMERULAR FILTRATION RATE > 60.0 (>58); GLUCOSE, FASTING 72 MG/DL (70-100); POTASSIUM SERUM 3.9 MEQ/L (3.5-5.1); SODIUM LEVEL 139 MEQ/L (136-145); TOTAL PROTEIN 6.7 GM/DL (6.4-8.2)
[2021-09-01 17:49] LABS: ERYTHROCYTE SEDIMENTATION RATE 6 mm/hr (0-20)
== END ==
LOC: M SFHCRHEU 13:25
PROVIDERS: ATTEND Internal Medicine Rheumatology
DX: R23.1 Pallor (principal); M35.3 Polymyalgia rheumatica; I73.00 Raynaud's syndrome without gangrene; I78.1 Nevus, non-neoplastic

== ENCOUNTER → 2021-11-01 | Outpatient (CLI) | payer OTHER ==
[~2021-11-01] MED LIST changes: +LEVO1TAB39; -LEVO500T4
[2021-11-01 16:11] LABS: BASO # 0.1 10^3/uL (0.0-0.2); BASO % 0.4 % (0.0-1.0); EOS % 0.1 % (0.0-3.0); HEMATOCRIT 45.2 % (36.0-47.0); HEMOGLOBIN 15.2 g/dl (12.0-15.5); LYMPH # 2.9 10^3/uL (1.5-5.0); LYMPH % 18.8 % (24.0-44.0); MEAN CORPUSCULAR HEMOGLOBIN 32.8 pg (27.0-33.0); MEAN CORPUSCULAR HGB CONC 33.6 g/dl (32.0-36.5); MEAN CORPUSCULAR VOLUME 97.4 fl (80.0-96.0); MONO # 0.8 10^3/uL (0.0-0.8); MONO % 4.9 % (2.0-8.0); NEUTROPHILS # 11.4 10^3/uL (1.5-8.5); NEUTROPHILS % 75.3 % (36.0-66.0); PLATELET COUNT, AUTOMATED 361 10^3/uL (150-450); RED BLOOD COUNT 4.64 10^6/uL (4.00-5.40); WHITE BLOOD COUNT 15.2 10^3/uL (4.0-10.0)
[2021-11-01 16:54] LABS: ALT/SGPT 52 U/L (12-78); BLOOD UREA NITROGEN 18 MG/DL (7-18); CALCIUM LEVEL 9.3 MG/DL (8.5-10.1); CARBON DIOXIDE LEVEL 21 MEQ/L (21-32); CHLORIDE LEVEL 111 MEQ/L (98-107); CREATININE FOR GFR 0.75 MG/DL (0.55-1.30); GLOMERULAR FILTRATION RATE > 60.0 (>58); GLUCOSE, FASTING 91 MG/DL (70-100); POTASSIUM SERUM 4.3 MEQ/L (3.5-5.1); SODIUM LEVEL 138 MEQ/L (136-145)
[2021-11-01 16:55] LABS: ALBUMIN 3.9 GM/DL (3.2-5.2); BILIRUBIN,TOTAL 0.3 MG/DL (0.2-1.0); COMPLEMENT C3 104 MG/DL (90-180); COMPLEMENT C4 24 MG/DL (10-40); FERRITIN 25 NG/ML (8-252); FREE T4 0.86 NG/DL (0.76-1.46); IMMUNOGLOBULIN A 98.1 MG/DL (70-400); IMMUNOGLOBULIN G 663 MG/DL (681-1648); IRON (FE) 104 UG/DL (50-170); THYROID STIMULATING HORMONE 0.634 uIU/ML (0.358-3.740); TOTAL PROTEIN 6.8 GM/DL (6.4-8.2)
[2021-11-01 17:11] LABS: ERYTHROCYTE SEDIMENTATION RATE 4 mm/hr (0-20)
[2021-11-01 17:19] LABS: THYROID PEROXIDASE ANTIBODY 29.6 U/ML (<60.0)
[2021-11-03 13:03] LABS: ALPHA-2-GLOBULINS % 11.3 % (7.1-11.8); BETA-1-GLOBULINS % 6.6 % (4.7-7.2)
[2021-11-03 13:04] LABS: ALBUMIN 4.22 GM/DL (3.29-5.55); ALPHA-1-GLOBULINS 0.34 GM/DL (0.17-0.41); BETA-2-GLOBULINS % 3.6 % (3.2-6.5); GAMMA GLOBULIN % 11.5 % (11.1-18.8)
[2021-11-03 13:08] LABS: ALPHA-2-GLOBULINS 0.77 GM/DL (0.42-0.99); BETA-1-GLOBULINS 0.45 GM/DL (0.28-0.60); BETA-2-GLOBULINS 0.24 GM/DL (0.19-0.55); GAMMA GLOBULINS 0.78 GM/DL (0.65-1.58)
== END ==
LOC: M LAB 15:23
PROVIDERS: ATTEND Nurse Practitioner Family
DX: L29.9 Pruritus, unspecified (principal)
CPT/HCPCS: 36415; 80053; 82728; 82784; 83520; 83540; 84165; 84439; 84443; 85025; 85652; 86140; 86160; 86162; 86335; 86352; 86376; G0463

== ENCOUNTER → 2021-11-02 | Outpatient (CLI) | payer OTHER | LOC: M PLALAB 13:00 | PROVIDERS: ATTEND Psychiatry & Neurology Neurology | DX: G70.00 Myasthenia gravis without (acute) exacerbation (principal); R13.10 Dysphagia, unspecified ==

== ENCOUNTER 2021-11-07 15:08 | Emergency (ER) | payer OTHER ==
[~2021-11-07] VITALS: Ht 180.3 cm; Wt 136.7 kg
[2021-11-07 15:09] VITALS: BP 150/88
== END 2021-11-07 15:38 | disposition left against medical advice (07) ==
LOC: M ED 15:08
DX: Z53.29 Procedure and treatment not carried out because of patient's decision for other reasons (principal)

== ENCOUNTER → 2021-11-29 | Outpatient (REF) | payer OTHER | LOC: M SFHCDERM 17:39 | PROVIDERS: ATTEND Nurse Practitioner Family | DX: I78.1 Nevus, non-neoplastic (principal) ==

== ENCOUNTER → 2022-04-11 | Outpatient (CLI) | payer OTHER ==
[~2022-04-11] MED LIST changes: +PROHANCE 279.3MG/ML 15ML VIAL As Ordered ONE; +PROHANCE 279.3MG/ML 5ML VIAL As Ordered ONE
== END ==
LOC: M RAD 10:26
PROVIDERS: ATTEND Surgery Vascular Surgery
DX: I73.9 Peripheral vascular disease, unspecified (principal)
CPT/HCPCS: A9576; C8914

== ENCOUNTER → 2022-05-05 | Outpatient (CLI) | payer OTHER ==
[~2022-05-05] MED LIST changes: +BARIUM SULFATE 700 MG TABLET (E-Z-DISK) As Ordered ONE; +E-Z-PAQUE 96% w/w SUSP 176GM BTL As Ordered ONE; -PROHANCE 279.3MG/ML 15ML VIAL As Ordered ONE; -PROHANCE 279.3MG/ML 5ML VIAL As Ordered ONE; +VARIBAR NECTAR 40% w/v 240ML SUSP BTL As Ordered ONE; +VARIBAR PUDDING 40% w/v 230ML TUBE As Ordered ONE
== END ==
LOC: M RAD 11:12
PROVIDERS: ATTEND Physician Assistant Medical
DX: R13.10 Dysphagia, unspecified (principal)

== ENCOUNTER → 2022-05-18 | Outpatient (CLI) | payer OTHER ==
[~2022-05-18] MED LIST changes: -BARIUM SULFATE 700 MG TABLET (E-Z-DISK) As Ordered ONE; +DULO-34 PO; -E-Z-PAQUE 96% w/w SUSP 176GM BTL As Ordered ONE; +HYDR-3716 PO; +NADO20TA PO; -OMEP-173; +OMEP-173 PO; +PRED10TA2 PO; +PYRI60TA2 PO; +TOPI-254; -TOPI50TA9; -VARIBAR NECTAR 40% w/v 240ML SUSP BTL As Ordered ONE; -VARIBAR PUDDING 40% w/v 230ML TUBE As Ordered ONE; +VYVA20CA PO
== END ==
LOC: M LABSMTC 10:33
PROVIDERS: ATTEND Anesthesiology
DX: Z01.812 Encounter for preprocedural laboratory examination (principal)

== ENCOUNTER 2022-05-23 11:30 | Day surgery (SDC) | payer OTHER ==
[~2022-05-23] VITALS: Ht 180.3 cm; Wt 135.6 kg
[~2022-05-23 11:30] MED LIST changes: +NS 1,000 ML IV ONE
[2022-05-23] MEDS ORDERED: LIDOCAINE 2% 100MG/5ML SDV (FOR ANES.) As Ordered ONE (12:12)
[2022-05-23] MEDS ORDERED: fentaNYL 100 MCG/2 ML INJECTION As Ordered ONE (12:13)
[2022-05-23] MEDS ORDERED: propofoL 500 MG/50 ML VIAL As Ordered ONE (12:15)
[2022-05-23] MEDS ORDERED: ALBUTEROL SULFATE 2.5MG/0.5ML INH NEB SOLN INH ONE (13:05)
[2022-05-23 14:44] VITALS: BP 139/98
== END 2022-05-23 15:00 | disposition home or self-care (01) ==
LOC: M OPP 11:30
PROVIDERS: ATTEND Internal Medicine Gastroenterology
DX: Z86.010 Personal history of colon polyps (principal); D12.3 Benign neoplasm of transverse colon; K57.30 Diverticulosis of large intestine without perforation or abscess without bleeding; K64.8 Other hemorrhoids; K31.89 Other diseases of stomach and duodenum; R13.10 Dysphagia, unspecified; I47.1 Supraventricular tachycardia; F32.9 Major depressive disorder, single episode, unspecified; Q79.60 Ehlers-Danlos syndrome, unspecified; G70.00 Myasthenia gravis without (acute) exacerbation; F17.200 Nicotine dependence, unspecified, uncomplicated; Z80.1 Family history of malignant neoplasm of trachea, bronchus and lung; Z79.1 Long term (current) use of non-steroidal anti-inflammatories (NSAID); Z79.52 Long term (current) use of systemic steroids; Z79.891 Long term (current) use of opiate analgesic; Z79.899 Other long term (current) drug therapy; Z91.048 Other nonmedicinal substance allergy status; Z90.49 Acquired absence of other specified parts of digestive tract
CPT/HCPCS: 43239; 45385; 88305; J3010

== ENCOUNTER 2022-08-30 12:13 | Outpatient (CLI) | payer OTHER ==
[~2022-08-30] VITALS: Ht 177.8 cm; Wt 141.0 kg
[~2022-08-30 12:13] MED LIST changes: -NS 1,000 ML IV ONE
[2022-08-30 12:29] VITALS: BP 171/72; O2SAT 96
[2022-08-30] MEDS ORDERED: IMMUNE GLOBULIN 10% 10 GM in IV 1 EA IV ONE (12:35)
[2022-08-30] MEDS ORDERED: IMMUNE GLOBULIN 10% 5 GM in IV 1 EA IV ONE (12:35)
[2022-08-30] MEDS ORDERED: IMMUNE GLOBULIN 10% 20 GM in IV 1 EA IV ONE (12:35)
[2022-08-30 13:30] VITALS: BP 156/88; O2SAT 98
[2022-08-30 14:30] VITALS: BP 159/79; O2SAT 97
[2022-08-30 15:25] VITALS: BP 161/84; O2SAT 99
== END 2022-08-30 15:25 | disposition home or self-care (01) ==
LOC: M INFU 12:13
PROVIDERS: ATTEND Nurse Practitioner
DX: G70.00 Myasthenia gravis without (acute) exacerbation (principal)
CPT/HCPCS: 96365; 96366; J1459

== ENCOUNTER 2022-08-31 13:29 | Outpatient (CLI) | payer OTHER ==
[~2022-08-31] VITALS: Ht 172.7 cm; Wt 141.0 kg
[~2022-08-31 13:29] MED LIST changes: +IMMUNE GLOBULIN 10% 10 GM in IV 1 EA IV ONE; +IMMUNE GLOBULIN 10% 20 GM in IV 1 EA IV ONE; +IMMUNE GLOBULIN 10% 5 GM in IV 1 EA IV ONE
[2022-08-31 14:03] VITALS: BP 150/90; O2SAT 100
[2022-08-31 14:30] VITALS: BP 128/80; O2SAT 98
[2022-08-31 16:00] VITALS: BP 138/80; O2SAT 98
== END 2022-08-31 16:10 | disposition home or self-care (01) ==
LOC: M INFU 13:29
PROVIDERS: ATTEND Nurse Practitioner
DX: G70.00 Myasthenia gravis without (acute) exacerbation (principal)
CPT/HCPCS: 96365; 96366; J1459

== ENCOUNTER 2022-09-01 10:15 | Outpatient (CLI) | payer OTHER ==
[~2022-09-01] VITALS: Ht 177.8 cm; Wt 141.0 kg
[2022-09-01 10:15] VITALS: BP 130/84; O2SAT 97
[2022-09-01 11:45] VITALS: BP 110/82; O2SAT 98
[2022-09-01 13:35] VITALS: BP 110/77; O2SAT 97
== END 2022-09-01 13:35 ==
LOC: M INFU 10:15
PROVIDERS: ATTEND Nurse Practitioner
DX: G70.00 Myasthenia gravis without (acute) exacerbation (principal)
CPT/HCPCS: 96365; 96366; J1459

== ENCOUNTER 2022-12-20 14:40 | Emergency (ER) | payer OTHER ==
[~2022-12-20] VITALS: Ht 180.3 cm; Wt 140.1 kg
[~2022-12-20 14:40] MED LIST changes: -IMMUNE GLOBULIN 10% 10 GM in IV 1 EA IV ONE; -IMMUNE GLOBULIN 10% 20 GM in IV 1 EA IV ONE; -IMMUNE GLOBULIN 10% 5 GM in IV 1 EA IV ONE
[2022-12-20 14:41] VITALS: BP 183/98; TEMP 97.9; O2SAT 98
[2022-12-20] MEDS ORDERED: ALBU2.5V10 (15:26)
[2022-12-20] MEDS ORDERED: HYDR-4571 (15:26)
[2022-12-20] MEDS ORDERED: MYCO500T (15:26)
[2022-12-20] MEDS ORDERED: PREG75CA3 (15:26)
[2022-12-20 16:51] LABS: BASO # 0.1 10^3/uL (0.0-0.2); BASO % 0.4 % (0.0-1.0); EOS % 0.2 % (0.0-3.0); HEMATOCRIT 43.8 % (36.0-47.0); HEMOGLOBIN 15.2 g/dl (12.0-15.5); LYMPH # 3.3 10^3/uL (1.5-5.0); LYMPH % 24.9 % (24.0-44.0); MEAN CORPUSCULAR HEMOGLOBIN 35.3 pg (27.0-33.0); MEAN CORPUSCULAR HGB CONC 34.7 g/dl (32.0-36.5); MEAN CORPUSCULAR VOLUME 101.9 fl (80.0-96.0); MONO # 0.7 10^3/uL (0.0-0.8); MONO % 5.6 % (2.0-8.0); NEUTROPHILS % 68.2 % (36.0-66.0); PLATELET COUNT, AUTOMATED 282 10^3/uL (150-450); WHITE BLOOD COUNT 13.1 10^3/uL (4.0-10.0)
[2022-12-20 17:16] LABS: ALBUMIN 3.3 G/DL (3.2-5.2); ALKALINE PHOSPHATASE 63 U/L (46-116); ALT/SGPT 41 U/L (7.0-40); AST/SGOT 36 U/L (<34); BILIRUBIN,DIRECT 0.1 MG/DL (<0.4); BILIRUBIN,TOTAL 0.3 MG/DL (0.3-1.2); BLOOD UREA NITROGEN 19 MG/DL (9-23); CALCIUM LEVEL 8.6 MG/DL (8.5-10.1); CARBON DIOXIDE LEVEL 24 MMOL/L (20-31); CHLORIDE LEVEL 106 MMOL/L (98-107); CREATININE FOR GFR 0.51 MG/DL (0.55-1.30); GLOMERULAR FILTRATION RATE > 60.0 (>58); GLUCOSE, FASTING 97 MG/DL (60-100); POTASSIUM SERUM 4.2 MMOL/L (3.5-5.1); SODIUM LEVEL 137 MMOL/L (136-145); TOTAL PROTEIN 7.1 G/DL (5.7-8.2)
[2022-12-20 17:18] LABS: THYROID STIMULATING HORMONE 0.812 uIU/ML (0.55-4.78)
[2022-12-20 17:19] LABS: CPK CREATINE PHOSPHOKINASE 55 U/L (34-145); MB/CK RELATIVE INDEX 1.81 (< OR =4)
== END 2022-12-20 17:21 | disposition left against medical advice (07) ==
LOC: M ED 14:40
DX: R53.1 Weakness (principal); Z53.9 Procedure and treatment not carried out, unspecified reason

== ENCOUNTER → 2022-12-29 | Outpatient (CLI) | payer OTHER ==
[~2022-12-29] MED LIST changes: +ALBU2.5V10; +HYDR-4571; +MYCO500T; +PREG75CA3
== END ==
LOC: M RAD 14:40
PROVIDERS: ATTEND Registered Nurse
DX: M54.16 Radiculopathy, lumbar region (principal)

== ENCOUNTER → 2023-01-10 | Outpatient (CLI) | payer OTHER ==
[2023-01-10 13:20] LABS: BASO % 0.3 % (0.0-1.0); EOS % 0.2 % (0.0-3.0); LYMPH # 1.7 10^3/uL (1.5-5.0); LYMPH % 16.7 % (24.0-44.0); MEAN CORPUSCULAR HGB CONC 34.9 g/dl (32.0-36.5); MEAN CORPUSCULAR VOLUME 100.2 fl (80.0-96.0); MONO # 0.5 10^3/uL (0.0-0.8); MONO % 5.2 % (2.0-8.0); NEUTROPHILS # 7.7 10^3/uL (1.5-8.5); NEUTROPHILS % 76.8 % (36.0-66.0); PLATELET COUNT, AUTOMATED 317 10^3/uL (150-450); RED BLOOD COUNT 4.29 10^6/uL (4.00-5.40)
[2023-01-10 14:04] LABS: CPK CREATINE PHOSPHOKINASE 69 U/L (34-145)
[2023-01-10 14:05] LABS: ALBUMIN 3.5 G/DL (3.2-5.2); ALKALINE PHOSPHATASE 72 U/L (46-116); ALT/SGPT 37 U/L (7.0-40); AST/SGOT 36 U/L (<34); BILIRUBIN,TOTAL 0.2 MG/DL (0.3-1.2); BLOOD UREA NITROGEN 21 MG/DL (9-23); CALCIUM LEVEL 8.9 MG/DL (8.5-10.1); CARBON DIOXIDE LEVEL 24 MMOL/L (20-31); CHLORIDE LEVEL 103 MMOL/L (98-107); CREATININE FOR GFR 0.63 MG/DL (0.55-1.30); GLOMERULAR FILTRATION RATE > 60.0 (>58); GLUCOSE, FASTING 88 MG/DL (60-100); HCG, SERUM QUANTITATIVE 2.9 MIU/ML (<4.2); IMMUNOGLOBULIN G 3118 MG/DL (650-1600); IMMUNOGLOBULIN M 168.2 MG/DL (50-300); POTASSIUM SERUM 4.2 MMOL/L (3.5-5.1); SODIUM LEVEL 134 MMOL/L (136-145); TOTAL PROTEIN 8.6 G/DL (5.7-8.2)
[2023-01-10 14:13] LABS: HCG, SERUM QUALITATIVE NEGATIVE (NEGATIVE)
[2023-01-10 14:45] LABS: HEPATITIS B CORE ANTIBODY IGM NEGATIVE (NEGATIVE); HEPATITIS C VIRUS ABY INDEX 0.13 INDEX (<0.8)
== END ==
LOC: M LAB 12:08
DX: G70.00 Myasthenia gravis without (acute) exacerbation (principal)

== ENCOUNTER → 2023-03-21 | Outpatient (CLI) | payer OTHER ==
[~2023-03-21] MED LIST changes: +TOPI-21; -TOPI-254
== END ==
LOC: M PLAIMG 12:36
PROVIDERS: ATTEND Orthopaedic Surgery
DX: M87.052 Idiopathic aseptic necrosis of left femur (principal); M87.051 Idiopathic aseptic necrosis of right femur

== ENCOUNTER → 2023-04-18 | Outpatient (CLI) | payer OTHER ==
[~2023-04-18] VITALS: Ht 180.3 cm; Wt 136.0 kg
[2023-04-18] VITALS (8 sets, daily range): BP systolic 139–188; BP diastolic 70–94; TEMP 36.3; O2SAT 96–100
[~2023-04-18] MED LIST changes: +ACETAMINOPHEN TAB 650MG DOSE (2X325MG) PO ONE; +ALBUTEROL SULFATE 2.5MG/0.5ML INH NEB SOLN INH PRN; +BUDE10.7 IH; +DILT240C82 PO; +EPINEPHrine INJ 1 MG/ML 1ML AMP IM PRN; +NS 1,000 ML IV SCH; +PROZ20CA11 PO; +diphenhydrAMINE 25MG CAP PO ONE; +diphenhydrAMINE 50MG/ML VIAL IV PRN; +methylPREDNISolone 125MG 2ML VIAL IV ONE; +methylPREDNISolone 125MG 2ML VIAL IV PRN; +riTUXimab 1,000 MG in NS 900 ML IV ONE
== END ==
LOC: M INFU 08:53
PROVIDERS: ATTEND Nurse Practitioner Family
DX: G70.00 Myasthenia gravis without (acute) exacerbation (principal)
CPT/HCPCS: 96365; 96366; 96375; J2930; J9312

== ENCOUNTER → 2023-05-16 | Outpatient (CLI) | payer OTHER ==
[2023-05-16] VITALS (8 sets, daily range): BP systolic 125–155; BP diastolic 61–82; O2SAT 95–97
[~2023-05-16] VITALS: Ht 180.3 cm; Wt 141.0 kg
[2023-05-16] MEDS: diphenhydrAMINE 25MG CAP PO ONE (10:03)
[2023-05-16] MEDS: ACETAMINOPHEN TAB 650MG DOSE (2X325MG) PO ONE (10:03)
[2023-05-16] MEDS: methylPREDNISolone 125MG 2ML VIAL IV ONE (10:03)
[2023-05-16] MEDS: riTUXimab 1,000 MG in NS 900 ML IV ONE (10:21)
== END ==
LOC: M INFU 09:42
PROVIDERS: ATTEND Nurse Practitioner Family
DX: G70.00 Myasthenia gravis without (acute) exacerbation (principal)
CPT/HCPCS: 96365; 96366; 96375; J2930; J9312

== ENCOUNTER 2023-10-18 07:34 | Outpatient (CLI) | payer OTHER ==
[~2023-10-18] VITALS: Ht 177.8 cm; Wt 123.0 kg
[~2023-10-18 07:34] MED LIST changes: -ACETAMINOPHEN TAB 650MG DOSE (2X325MG) PO ONE; -diphenhydrAMINE 25MG CAP PO ONE; -methylPREDNISolone 125MG 2ML VIAL IV ONE; -riTUXimab 1,000 MG in NS 900 ML IV ONE
[2023-10-18] MEDS: methylPREDNISolone 125MG 2ML VIAL IV ONE (07:43)
[2023-10-18] MEDS: diphenhydrAMINE 25MG CAP PO ONE (07:43)
[2023-10-18] MEDS: ACETAMINOPHEN TAB 650MG DOSE (2X325MG) PO ONE (07:43)
[2023-10-18] MEDS: riTUXimab 1,000 MG in NS 900 ML IV ONE (08:30)
[2023-10-18 09:30] VITALS: BP 117/56; O2SAT 93
[2023-10-18 10:00] VITALS: BP 125/58; O2SAT 93
[2023-10-18 10:33] VITALS: BP 147/68; O2SAT 95
[2023-10-18 12:23] VITALS: BP 143/70; O2SAT 96
== END 2023-10-18 12:30 ==
LOC: M INFU 07:34
PROVIDERS: ATTEND Nurse Practitioner Family
DX: G70.00 Myasthenia gravis without (acute) exacerbation (principal); Z91.048 Other nonmedicinal substance allergy status
CPT/HCPCS: 96367; 96413; 96415; J2919; J9312

== ENCOUNTER 2024-06-11 08:20 | Outpatient (CLI) | payer OTHER ==
[~2024-06-11] VITALS: Ht 180.3 cm; Wt 111.4 kg
[~2024-06-11 08:20] MED LIST changes: -NS 1,000 ML IV SCH
[2024-06-11] MEDS: methylPREDNISolone 125MG 2ML VIAL IV ONE (08:29)
[2024-06-11 08:30] VITALS: BP 133/67; O2SAT 98
[2024-06-11] MEDS ORDERED: NS (Normal Saline) 0.9% 1,000 ML IV SCH (08:30)
[2024-06-11] MEDS: diphenhydrAMINE 25MG CAP PO ONE (08:30)
[2024-06-11] MEDS: ACETAMINOPHEN 650 MG PO ONE (08:30)
[2024-06-11] MEDS: RITUXIMAB IV ONE (09:27)
[2024-06-11] MEDS: NS 0.9% IV ONE (09:27)
[2024-06-11 10:00] VITALS: BP 139/61; O2SAT 98
[2024-06-11 10:30] VITALS: BP 129/60; O2SAT 96
[2024-06-11 11:00] VITALS: BP 129/61; O2SAT 97
[2024-06-11 12:40] VITALS: BP 134/70; O2SAT 97
== END 2024-06-11 12:40 ==
LOC: M INFU 08:20
PROVIDERS: ATTEND Nurse Practitioner Family
DX: G70.00 Myasthenia gravis without (acute) exacerbation (principal); Z91.048 Other nonmedicinal substance allergy status
CPT/HCPCS: 96365; 96366; 96375; J2919; J9312

== ENCOUNTER 2024-12-12 09:04 | Outpatient (CLI) | payer OTHER ==
[~2024-12-12] VITALS: Ht 165.1 cm; Wt 97.7 kg
[~2024-12-12 09:04] MED LIST changes: +ALBUTEROL SULFATE 2.5 MG/0.5 ML INH CONCENTRATE NEB SOLN INH PRN; -ALBUTEROL SULFATE 2.5MG/0.5ML INH NEB SOLN INH PRN; -NADO20TA PO; +NADO20TA38 PO; -PROZ20CA11 PO; +PROZ20CA12 PO; +diphenhydrAMINE 50 MG/ML VIAL IV PRN; -diphenhydrAMINE 50MG/ML VIAL IV PRN; -methylPREDNISolone 125MG 2ML VIAL IV PRN
[2024-12-12 09:15] VITALS: BP 122/59; O2SAT 98
[2024-12-12] MEDS ORDERED: NS (Normal Saline) 0.9% 1,000 ML IV SCH (09:30)
[2024-12-12] MEDS: ACETAMINOPHEN 650 MG PO ONE (09:38)
[2024-12-12] MEDS: riTUXimab 1,000 MG in NS (Normal Saline) 0.9% 900 ML IV ONE (09:45)
[2024-12-12 10:15] VITALS: BP 121/60; O2SAT 98
[2024-12-12 10:45] VITALS: BP 120/64; O2SAT 99
[2024-12-12 11:15] VITALS: BP 108/60; O2SAT 98
[2024-12-12 11:45] VITALS: BP 111/70; O2SAT 98
[2024-12-12 13:40] VITALS: BP 132/74; O2SAT 96
== END 2024-12-12 13:40 ==
LOC: M INFU 09:04
PROVIDERS: ATTEND Nurse Practitioner Family
DX: G70.00 Myasthenia gravis without (acute) exacerbation (principal); Z91.048 Other nonmedicinal substance allergy status
CPT/HCPCS: 96375; 96413; 96415; J2919; J9312